=== PATIENT | female | born 1985 | race African-American/Black ===

== ENCOUNTER 2017-11-03 16:06 | Emergency (ER) | payer MEDICAID ==
[~2017-11-03] VITALS: Ht 167.6 cm; Wt 55.0 kg
[~2017-11-03 16:06] MED LIST: BIRTH CONTROL
[2017-11-03] MEDS ORDERED: KETOROLAC 15MG/ML VIAL IV ONE (18:45)
[2017-11-03] MEDS ORDERED: ONDANSETRON HCL 4MG/2ML VIAL IV ONE (18:45)
[2017-11-03] MEDS ORDERED: FAMOTIDINE 20MG/2ML VIAL IV ONE (18:45)
[2017-11-03] MEDS ORDERED: SODIUM CHLORIDE 0.9% 1,000 ML IV ONE (18:45)
[2017-11-03 19:15] LABS: BASOPHILS % 0.3 % (0.0-2.0); EOSINOPHILS % 0.2 % (0.0-5.0); HEMATOCRIT. 39.9 % (36.0-48.0); HEMOGLOBIN. 12.8 g/dL (12.0-16.0); LYMPHOCYTES % 7.2 % (20.0-50.0); MEAN CORPUSCULAR VOLUME 84.5 fL (81.0-99.0); MEAN PLATELET VOLUME 10.5 fl (7.4-10.4); MONOCYTES % 3.6 % (2.0-8.0); NEUTROPHILS % 88.7 % (40.0-76.0); PLATELET 193 x1000/uL (130-400); RED BLOOD CELL COUNT 4.72 mill/uL (4.2-5.4); RED CELL DISTRIBUTION WIDTH 13.9 % (11.6-14.6)
[2017-11-03 19:31] LABS: CARBON DIOXIDE 24 mEq/L (21-32); CHLORIDE 104 mEq/L (98-107); ETHANOL BLOOD 27 mg/dL
[2017-11-03 20:07] VITALS: BP 106/66
== END 2017-11-03 20:09 | disposition home or self-care (01) ==
LOC: ER 16:48
DX: R10.13 Epigastric pain (principal); R11.2 Nausea with vomiting, unspecified; Z98.890 Other specified postprocedural states
CPT/HCPCS: 36415; 80053; 83690; 85025; 96361; 96374; 96375; 99284; G0482; J1885; J2405; J3490; Z7610; J7030

== ENCOUNTER 2017-12-26 12:14 | Emergency (ER) | payer MEDICAID ==
[~2017-12-26] VITALS: Ht 167.6 cm; Wt 66.0 kg
[2017-12-26 14:45] VITALS: BP 125/81
[2017-12-26] MEDS ORDERED: IBUPROFEN 800MG TABLET PO ONE (14:45)
== END 2017-12-26 14:50 | disposition home or self-care (01) ==
LOC: ER 13:00
DX: J11.1 Influenza due to unidentified influenza virus with other respiratory manifestations (principal); H66.93 Otitis media, unspecified, bilateral; F12.10 Cannabis abuse, uncomplicated; Z98.890 Other specified postprocedural states
CPT/HCPCS: 81025; 99283

== ENCOUNTER 2018-11-10 15:34 | Emergency (ER) | payer MEDICAID ==
[~2018-11-10] VITALS: Ht 167.6 cm; Wt 73.0 kg
[2018-11-10 15:41] VITALS: BP 124/73
== END 2018-11-10 23:00 | disposition left against medical advice (07) ==
LOC: ER 15:34
DX: R10.13 Epigastric pain (principal); R11.2 Nausea with vomiting, unspecified; Z53.21 Procedure and treatment not carried out due to patient leaving prior to being seen by health care provider

== ENCOUNTER 2021-01-10 08:26 | Emergency (ER) | payer MEDICAID ==
[~2021-01-10] VITALS: Ht 167.6 cm; Wt 68.0 kg
[2021-01-10 08:31] VITALS: BP 151/85
[2021-01-10] MEDS ORDERED: KETOROLAC 30MG/ML VIAL IM ONE (08:45)
[2021-01-10] MEDS ORDERED: IBUP-2029 MT (09:25)
== END 2021-01-10 09:40 | disposition home or self-care (01) ==
LOC: ER 08:38
DX: S62.602A Fracture of unspecified phalanx of right middle finger, initial encounter for closed fracture (principal); W01.0XXA Fall on same level from slipping, tripping and stumbling without subsequent striking against object, initial encounter; Y93.89 Activity, other specified; Y92.89 Other specified places as the place of occurrence of the external cause
CPT/HCPCS: 29130; 73130; 81025; 96372; 99283; J1885

== ENCOUNTER 2021-04-11 07:25 | Emergency (ER) | payer MEDICAID ==
[~2021-04-11] VITALS: Ht 167.6 cm; Wt 69.0 kg
[~2021-04-11 07:25] MED LIST changes: +IBUP-2029 MT
[2021-04-11] MEDS ORDERED: KETOROLAC 60MG/2ML VIAL IM ONE (08:00)
[2021-04-11] MEDS ORDERED: T3 PO (09:38)
[2021-04-11] MEDS ORDERED: IBUP-2028 PO (09:38)
[2021-04-11 09:46] VITALS: BP 128/84
== END 2021-04-11 09:47 | disposition home or self-care (01) ==
LOC: ER 07:25
DX: S16.1XXA Strain of muscle, fascia and tendon at neck level, initial encounter (principal); M25.511 Pain in right shoulder; Y04.0XXA Assault by unarmed brawl or fight, initial encounter; Y93.89 Activity, other specified; Y92.89 Other specified places as the place of occurrence of the external cause
CPT/HCPCS: 72125; 93005; 96372; 99284; J1885

== ENCOUNTER 2023-09-08 11:32 | Emergency (ER) | payer MEDICAID ==
[~2023-09-08] VITALS: Ht 165.1 cm; Wt 73.0 kg
[~2023-09-08 11:32] MED LIST changes: +IBUP-2028 PO; +T3 PO
[2023-09-08 11:35] VITALS: O2SAT 96
[2023-09-08] MEDS ORDERED: ACETAMINOPHEN 325MG TABLET PO ONE (12:45)
[2023-09-08] MEDS ORDERED: BACITRACIN ZINC OINT UDPKT TOP ONE (12:45)
[2023-09-08] MEDS ORDERED: TETANUS, DIPHTHERIA, PERTUSSIS VAC/PF 0.5ML (>10YR OLD) IM ONE (12:45)
[2023-09-08] MEDS ORDERED: LIDOCAINE HCL/PF 1% 10 MG/ML 5ML VIAL INFIL ONE (12:45)
[2023-09-08] MEDS ORDERED: TOPUD MT (14:22)
[2023-09-08] MEDS ORDERED: BO1 TP (14:22)
[2023-09-08 17:00] VITALS: BP 124/87; PULSE 85; RESP 18; TEMP 98
== END 2023-09-08 17:01 | disposition home or self-care (01) ==
LOC: ER 11:32
DX: S01.311A Laceration without foreign body of right ear, initial encounter (principal); H92.01 Otalgia, right ear; Z98.890 Other specified postprocedural states; Z79.899 Other long term (current) drug therapy; Y08.89XA Assault by other specified means, initial encounter; Y93.89 Activity, other specified; Y92.89 Other specified places as the place of occurrence of the external cause; Y99.8 Other external cause status
CPT/HCPCS: 90715; 12014; 90471; 99283; J3490; Z7610 ×3; 99284

== ENCOUNTER 2023-09-16 12:29 | Emergency (ER) | payer MEDICAID ==
[~2023-09-16] VITALS: Ht 170.2 cm; Wt 75.0 kg
[~2023-09-16 12:29] MED LIST changes: +BO1 TP; +TOPUD MT
[2023-09-16 12:41] VITALS: BP 112/72; PULSE 74; RESP 18; TEMP 98.2; O2SAT 98
== END 2023-09-16 13:12 | disposition home or self-care (01) ==
LOC: ER 12:37
DX: Z48.02 Encounter for removal of sutures (principal)
CPT/HCPCS: 99281

== ENCOUNTER 2025-09-26 21:14 | Emergency (ER) | payer MEDICAID, OTHER ==
[~2025-09-26] VITALS: Ht 167.6 cm; Wt 78.0 kg
[~2025-09-26 21:14] MED LIST changes: +BROM118S47 PO; +IBUP-1455 MT; -IBUP-2029 MT
[2025-09-26 21:16] VITALS: O2SAT 98
[2025-09-26 21:20] VITALS: BP 122/85; PULSE 95; RESP 18; TEMP 36.8; O2SAT 99
[2025-09-27] MEDS: ACETAMINOPHEN 500MG TABLET PO ONE (00:27)
[2025-09-27] MEDS ORDERED: LIDO-53 TP (01:46)
[2025-09-27] MEDS ORDERED: NAPR-1176 MT (01:46)
== END 2025-09-27 02:10 | disposition home or self-care (01) ==
LOC: ER 21:14
DX: H11.31 Conjunctival hemorrhage, right eye (principal); M79.605 Pain in left leg; Z79.1 Long term (current) use of non-steroidal anti-inflammatories (NSAID); Z79.3 Long term (current) use of hormonal contraceptives; Z88.5 Allergy status to narcotic agent
CPT/HCPCS: 93971; 99284